=== PATIENT | female | born 1970 | race Caucasian/White ===

== ENCOUNTER 2018-04-15 10:24 | Emergency (ER) | payer OTHER, SELFPAY ==
[2018-04-15 10:42] VITALS: BMI 25.0
[2018-04-15 10:44] VITALS: BP 118/74; PULSE 70; RESP 18; TEMP 97.5; O2SAT 100
--- NOTE | 2018-04-15 12:17 | ED PDOC ---
HPI:Nausea, Vomiting, Diarrhea Time Seen by Provider: 04/15/18 11:00 Chief Complaint (Nursing): Abnormal Skin Integrity Chief Complaint (Provider): RASH History Per: Patient (47 Y/O FEMALE HERE WITH RASH GENERALIZED INTERMITTENT NOT ASSOCIATED WITH MEDICATIONS. NO FEVERS/CHILLS. NO VOMITING. NO NEW LOTIONS. TAKES FLEXERIL/NAPROXEN INTERMITTENTLY.) Past Medical History Reviewed: Historical Data, Nursing Documentation, Vital Signs Vital Signs: Last Vital Signs Temp 97.5 F L 04/15/18 10:43 Pulse 70 04/15/18 10:43 Resp 18 04/15/18 10:43 BP 118/74 04/15/18 10:43 Pulse Ox 100 04/15/18 10:43 - Family History Family History: States: No Known Family Hx - Allergies Allergies/Adverse Reactions: Allergies Allergy/AdvReac Type Severity Reaction Status Date / Time No Known Allergies Allergy Verified 04/15/18 12:14 Review of Systems ROS Statement: Except As Marked, All Systems Reviewed And Found Negative Skin: Positive for: Rash Physical Exam - Reviewed Nursing Documentation Reviewed: Yes Vital Signs Reviewed: Yes - Physical Exam Appears: Positive for: Well, Non-toxic, No Acute Distress Head Exam: Positive for: ATRAUMATIC, NORMAL INSPECTION, NORMOCEPHALIC Skin: Positive for: Normal Color, Warm, Rash (PATCHY RASH TORSO FRONT/BACK WITH SCALY SKIN.) Eye Exam: Positive for: EOMI, Normal appearance, PERRL ENT: Positive for: Normal ENT Inspection Neck: Positive for: Normal, Painless ROM Cardiovascular/Chest: Positive for: Regular Rate, Rhythm Respiratory: Positive for: CNT, Normal Breath Sounds Gastrointestinal/Abdominal: Positive for: Normal Exam, Soft Back: Positive for: Normal Inspection Extremity: Positive for: Normal ROM Neurologic/Psych: Positive for: Alert, Oriented - ECG O2 Sat by Pulse Oximetry: 100 Disposition - Clinical Impression Clinical Impression: Psoriasis - Patient ED Disposition Is Patient to be Admitted: No - Disposition Referrals: Rafa Nobles MD [Staff Provider] - Disposition: Routine/Home Disposition Time: 12:19 Condition: FAIR Additional Instructions: DERMATOLOGY JANEEN SCHOFIELD [phone] Instructions: Psoriasis (DC) Print Language: GREENLAND[place]
== END 2018-04-15 12:32 | disposition home or self-care (01) ==
LOC: H.ER 10:24
DX: L40.9 Psoriasis, unspecified (principal)